=== PATIENT | female | born 1995 | race Caucasian/White ===

== ENCOUNTER 2017-11-27 23:31 | Emergency (ER) | payer BC ==
[~2017-11-27] VITALS: Ht 167.6 cm; Wt 100.0 kg
[~2017-11-27 23:31] MED LIST: BACTRIM DS 8001 TAB PO; CEPHALEXIN500 M1 PO; COPPERAS1 CRE; LEXAPRO 10MG10 MG PO; NO HOME MEDICATIONS; NORCO 325 MG-51 TAB PO; RISPERDAL 0.5M0.5 MG PO
[2017-11-27 23:36] VITALS: BP 153/83; TEMP 98.8
[2017-11-28 01:32] VITALS: PULSE 79
== END 2017-11-28 01:34 | disposition home or self-care (01) ==
LOC: COL.ER 23:31
DX: S60.031A Contusion of right middle finger without damage to nail, initial encounter (principal); W23.0XXA Caught, crushed, jammed, or pinched between moving objects, initial encounter; Y92.009 Unspecified place in unspecified non-institutional (private) residence as the place of occurrence of the external cause